=== PATIENT | male | born 1960 | race Caucasian/White ===

== ENCOUNTER → 2019-05-08 | Outpatient (CLI) | payer OTHER ==
--- NOTE | 2019-05-08 20:04 | CT ---
Procedure: CT LUNG SCREENING Exam Date: 05/08/2019. Ordering Provider: Calin Andrade Clinical Indication: lung screening . Current cigarette smoker. 30 pack years. This patient meets eligibility criteria for low-dose CT lung cancer screening. Comparison: None. Technique: Using a multislice scanner, sequential helical axial imaging was obtained in the thorax, 2.5 mm thickness, 2.5 mm separation, from the level of the thoracic inlet through the lung bases without IV contrast. A low dose protocol was utilized for BMI less than 30: BMI: 28.8. CTDI: 1.76 mGy. 120. kVp. 45 mA. DLP 60.99 mGy-centimeters. 2D sagittal and coronal reconstructed images, 6.0 mm thickness, were obtained. This exam was performed according to our departmental dose optimization program which includes use of automated exposure control, adjustment of the mA and/or kV according to patient size and/or use of iterative reconstruction technique. Nodule measurements under 10 mm are given as mean value of 3 axes diameters. FINDINGS: Lungs and large airways: Small blebs seen bilaterally abutting the pleura mostly in the upper lobes also bulla abutting the medial pleura. Bilateral scattered areas of pleural-parenchymal scarring. Minimal bilateral perihilar peribronchial wall thickening. 3.6 mm solid nodule subpleural medial superior segment right lower lobe on axial image . No abnormal nodules or masses. No focal infiltrates.. Pleura and space: Bilateral scattered focal thickening. No effusion or pneumothorax. Mediastinum and randall: evaluation limited by low dose technique and lack of IV contrast. Small nodes but no dominant soft tissue masses. Heart and great vessels: Cardiac surgical hardware. Coronary artery calcifications and stents. Atherosclerotic calcifications of the brachiocephalic vessels and thoracic aorta. Chest wall, lower neck, axillae: Evaluation also limited by same factors as described above. Bilateral axillary nodes. No dominant soft tissue masses. Calcification left lobe of the thyroid gland. Prior sternotomy.. Upper abdomen: Evaluation limited by low-dose technique. No free air or fluid in the included peritoneal. Normal size and density of the spleen and adrenal glands. Partial visualization of the gallbladder. Osseous structures: Evaluation limited by low dose MIP technique. Prior sternotomy. Minimal mid thoracic spondylosis. No lytic or blastic lesions. IMPRESSION: 1. 3.6 mm subpleural solid nodule medial aspect superior segment right lower lobe no other nodules. No masses. No focal infiltrates. Paraseptal type emphysema more prevalent in the upper lung ang. Bilateral pleural and parenchymal scarring. [facility] Best Practice guidelines: Please see below for Lung RADS category and FOLLOW-UP.* *Lung RADS category CATEGORY 2- Nodules with a very low likelihood (less than 1%) of becoming a clinically active cancer due to size or lack of growth. Nodules: Perifissural nodule(s) < 10 mm. (526mm3). Solid or part solid nodule(s) less than 6mm (113.1 mm3), new solid nodule less than 4mm (33.5 mm3). Ground glass nodule(s) less than 30mm (06267.2 mm3) or unchanged or slow growing ground glass nodule 30mm or greater. Cat 3 or 4 nodule unchanged for 3 or more months. FOLLOW-UP: Continue annual screening with a Low Dose Chest CT in 12 months for re-evaluation. Electronically signed by: Wesly Mcrae MD 05/08/2019 8:03 PM CDT
== END ==
LOC: CT 10:30
PROVIDERS: ATTEND Family Medicine
DX: Z87.891 Personal history of nicotine dependence (principal); R91.1 Solitary pulmonary nodule; J43.9 Emphysema, unspecified; J98.4 Other disorders of lung